=== PATIENT | male | born 1985 | race Caucasian/White ===

== ENCOUNTER 2017-10-29 20:37 | Emergency (ER) | payer MEDICAID ==
[~2017-10-29] VITALS: Ht 165.1 cm; Wt 84.0 kg
[2017-10-29] MEDS ORDERED: TETRACAINE 0.5% OPHTH DROPS 4ML RIGHTEYE ONE (22:00)
[2017-10-29] MEDS ORDERED: FLUORESCEIN SODIUM 1MG/STRIP RIGHTEYE ONE (22:00)
[2017-10-29 22:58] VITALS: BP 116/77
== END 2017-10-29 23:22 | disposition home or self-care (01) ==
LOC: ER 20:37
DX: S05.01XA Injury of conjunctiva and corneal abrasion without foreign body, right eye, initial encounter (principal); X58.XXXA Exposure to other specified factors, initial encounter; Y93.89 Activity, other specified; Y92.69 Other specified industrial and construction area as the place of occurrence of the external cause; Y99.0 Civilian activity done for income or pay; H40.9 Unspecified glaucoma
CPT/HCPCS: 99283

== ENCOUNTER 2018-11-23 04:34 | Emergency (ER) | payer MEDICAID ==
[~2018-11-23] VITALS: Ht 165.1 cm; Wt 82.0 kg
[2018-11-23 06:12] LABS: CHLORIDE 107 mEq/L (98-107)
[2018-11-23 06:15] LABS: BASOPHILS % 0.3 % (0.0-2.0); EOSINOPHILS % 0.5 % (0.0-5.0); HEMATOCRIT. 41.1 % (42.0-52.0); HEMOGLOBIN. 14.1 g/dL (14.0-18.0); LYMPHOCYTES % 13.8 % (20.0-50.0); MEAN CORPUSCULAR HEMOGLOBIN 29.3 pg (28.0-32.0); MEAN CORPUSCULAR VOLUME 85.6 fL (80.0-94.0); MEAN PLATELET VOLUME 7.9 fl (7.4-10.4); MONOCYTES % 6.4 % (2.0-8.0); PLATELET 244 x1000/uL (130-400); RED BLOOD CELL COUNT 4.81 mill/uL (4.7-6.1); RED CELL DISTRIBUTION WIDTH 13.5 % (11.6-14.6)
[2018-11-23 06:18] LABS: ETHANOL BLOOD < 10 mg/dL
[2018-11-23] MEDS ORDERED: VISCOUS LIDOCAINE 2% 15 ML UDC PO STA (06:20)
[2018-11-23] MEDS ORDERED: MAGNESIUM/ALUMINUM HYDROXIDE/SIMETHICONE 30ML UDC PO STA (06:20)
[2018-11-23] MEDS ORDERED: FAMOTIDINE 20MG TABLET PO ONE (06:30)
[2018-11-23] MEDS ORDERED: KETOROLAC 15MG/ML VIAL IV ONE (08:00)
[2018-11-23] MEDS ORDERED: ONDANSETRON HCL 4MG/2ML INJ IV ONE (08:00)
[2018-11-23 09:14] VITALS: BP 123/68
== END 2018-11-23 09:15 | disposition home or self-care (01) ==
LOC: ER 05:33
DX: R10.13 Epigastric pain (principal)
CPT/HCPCS: 36415; 76700; 80053; 80320; 83690; 85025; 96374; 96375; 99284; J1885; J2405; G0480